=== PATIENT | female | born 1955 | race Caucasian/White ===

== ENCOUNTER 2022-09-02 11:55 | Observation (INO) | payer MEDICARE, MEDICAID ==
[2022-09-02] MEDS ORDERED: Albuterol/Ipratropium 3.0-0.5 MG/3 ML Neb Soln NEB ONE (12:18)
[2022-09-02] MEDS ORDERED: Sodium Chloride 0.9% 10 ML Syringe FLUSH PRN (12:19)
[2022-09-02] MEDS ORDERED: methylPREDNISolone Sodium Succinate 125 MG/2 ML SDV IVPUSH ONE (12:19)
[2022-09-02] MEDS ORDERED: Azithromycin 500 MG Tab PO ONE (12:20)
[2022-09-02 13:12] LABS: BASOPHILS ABSOLUTE AUTO 0.03 K/uL (0.02-0.10); BASOPHILS PERCENT AUTO 0.5 % (0.0-0.5); EOSINOPHILS ABSOLUTE AUTO 0.18 K/uL (0.04-0.40); HEMOGLOBIN 16.7 g/dL (11.5-16.5); LYMPHOCYTES ABSOLUTE AUTO 1.76 K/uL (1.50-4.00); LYMPHOCYTES PERCENT AUTO 29.4 % (20.0-40.0); MEAN CORPUSCULAR HEMOGLOBIN 32.1 pg (27.0-32.0); MEAN CORPUSCULAR HGB CONC 34.1 g/dL (31.0-35.0); MEAN CORPUSCULAR VOLUME 94 fL (76-96); MEAN PLATELET VOLUME 9.3 fL (6.0-10.0); MONOCYTES ABSOLUTE AUTO 0.69 K/uL (0.20-0.80); MONOCYTES PERCENT AUTO 11.5 % (3.0-10.0); NEUTROPHILS ABSOLUTE AUTO 3.33 K/uL (2.00-7.50); NEUTROPHILS PERCENT AUTO 55.6 % (45.0-70.0); PLATELET COUNT,PLT 245 K/uL (150-500); RED BLOOD CELL COUNT 5.21 M/uL (3.80-5.80); RED CELL DISTRIBUTION WIDTH 13.1 % (11.0-16.0)
[2022-09-02 13:41] LABS: A/G RATIO 1.1 (0.8-2.0); ALANINE AMINOTRANSFERASE,ALT 24 U/L (12-78); ALBUMIN 3.6 g/dL (3.4-5.0); ALKALINE PHOSPHATASE 103 U/L (46-116); ASPARTATE AMNIOTRANSFERASE,AST 18 U/L (15-37); BILIRUBIN TOTAL 0.5 mg/dL (0.0-1.0); BLOOD UREA NITROGEN,BUN 10 mg/dL (8-26); BUN/CREATININE RATIO 10.9 (6-25); CALCIUM 8.9 mg/dL (8.5-10.1); CARBON DIOXIDE,CO2 33.4 mmol/L (21.0-32.0); CHLORIDE,CL 104 mmol/L (98-107); CREATININE 0.92 mg/dL (0.55-1.02); ESTIMATED GFR 68 mL/min (>60); GLUCOSE RANDOM 108 mg/dL (74-100); MAGNESIUM 1.9 mg/dL (1.8-2.4); POTASSIUM,K 4.4 mmol/L (3.5-5.1); SODIUM,NA 141 mmol/L (136-145)
[2022-09-02] MEDS ORDERED: Nicotine 21 MG/24 Hr Patch TRDERM SCH (16:28)
[2022-09-02] MEDS ORDERED: cefTRIAXone 1 GM Vial IVPUSH SCH (17:00)
[2022-09-02] MEDS ORDERED: Nicotine 14 MG/24 Hr Patch TRDERM SCH (17:00)
[2022-09-02] MEDS: Albuterol/Ipratropium 3.0-0.5 MG/3 ML Neb Soln NEB SCH ×2 (17:04→19:37)
[2022-09-02] MEDS: methylPREDNISolone Sodium Succinate 125 MG/2 ML SDV IVPUSH SCH (19:37)
[2022-09-03] MEDS: methylPREDNISolone Sodium Succinate 125 MG/2 ML SDV IVPUSH SCH (04:10)
[2022-09-03 07:59] LABS: BASOPHILS ABSOLUTE AUTO 0.01 K/uL (0.02-0.10); BASOPHILS PERCENT AUTO 0.1 % (0.0-0.5); HEMATOCRIT 44.1 % (37.0-47.0); HEMOGLOBIN 14.9 g/dL (11.5-16.5); LYMPHOCYTES ABSOLUTE AUTO 0.88 K/uL (1.50-4.00); LYMPHOCYTES PERCENT AUTO 7.3 % (20.0-40.0); MEAN CORPUSCULAR HEMOGLOBIN 31.6 pg (27.0-32.0); MEAN CORPUSCULAR HGB CONC 33.8 g/dL (31.0-35.0); MEAN CORPUSCULAR VOLUME 94 fL (76-96); MEAN PLATELET VOLUME 9.8 fL (6.0-10.0); MONOCYTES ABSOLUTE AUTO 0.21 K/uL (0.20-0.80); MONOCYTES PERCENT AUTO 1.7 % (3.0-10.0); NEUTROPHILS ABSOLUTE AUTO 10.96 K/uL (2.00-7.50); NEUTROPHILS PERCENT AUTO 90.9 % (45.0-70.0); PLATELET COUNT,PLT 274 K/uL (150-500); RED BLOOD CELL COUNT 4.71 M/uL (3.80-5.80); RED CELL DISTRIBUTION WIDTH 12.8 % (11.0-16.0); WHITE BLOOD CELL COUNT,WBC 12.1 K/uL (4.0-11.0)
[2022-09-03] MEDS ORDERED: Azithromycin 250 MG Tab PO SCH (08:00)
[2022-09-03] MEDS: Albuterol/Ipratropium 3.0-0.5 MG/3 ML Neb Soln NEB SCH (08:03)
[2022-09-03 08:37] LABS: ALBUMIN 3.1 g/dL (3.4-5.0); ANION GAP 13.3 mmol/L (5.0-15.0); BILIRUBIN TOTAL 0.2 mg/dL (0.0-1.0); BUN/CREATININE RATIO 14.9 (6-25); CALCIUM 8.6 mg/dL (8.5-10.1); CARBON DIOXIDE,CO2 25.7 mmol/L (21.0-32.0); CREATININE 0.94 mg/dL (0.55-1.02); EST CRCL DRUG DOSING (CG) 59.86 mL/min; PROTEIN TOTAL,TP 6.3 g/dL (6.4-8.2)
[2022-09-04] MEDS ORDERED: predniSONE 20 MG Tab PO SCH (07:00)
[2022-09-04] MEDS ORDERED: Azithromycin 250 MG Tab PO SCH (08:00)
== END 2022-09-03 10:50 | disposition home or self-care (01) ==
LOC: LB.ED 11:55 → LB.MS 14:56
PROVIDERS: ADMIT Registered Nurse; ATTEND Registered Nurse
DX: J44.1 Chronic obstructive pulmonary disease with (acute) exacerbation (principal); R09.02 Hypoxemia; F17.210 Nicotine dependence, cigarettes, uncomplicated; R73.03 Prediabetes; Z88.1 Allergy status to other antibiotic agents; Z79.899 Other long term (current) drug therapy
CPT/HCPCS: 36415; 71045; 80053; 83735; 85025; 93005; 96374; 96375; 96376; 99285; A9270; G0378; J0696; J2930; J7620